=== PATIENT | female | born 1985 | race Caucasian/White ===

== ENCOUNTER 2019-09-22 19:47 | Emergency (ER) | payer BC, OTHER ==
[2019-09-22 20:09] VITALS: BP 128/68
--- NOTE | 2019-09-22 20:19 | UC ---
Throat Pain/Nasal Jose HPI - HPI Summary HPI Summary: 34 y/o female presents to the urgent c/o dry cough, neck pain, sore throat and low grade fever for the past 4 days. Pt repeorts she had similar symptoms in July when she travelled to [facility] and was Dx w/ strep clinically and Rx antibiotics and symptoms improved. Now it has returned. p[ain sw/ swalloing is 4/10 w/ some white spots on her tonsils. Low grade fever at home the first day of 99F. Pt has not taken any medication to alleviate symptoms. She denies any SOB, chest pain, MCNEIL, body aches dizziness, abdominal pain, N/V/D. She travelled to [place] from September 15-, Denies sick contacts. - History of Current Complaint Chief Complaint: UCGeneralIllness Stated Complaint: COUGH, SORE THROAT Time Seen by Provider: 09/22/19 20:17 Hx Obtained From: Patient Hx Last Menstrual Period: 09/16/19 Onset/Duration: Gradual Onset, Lasting Days Pain Intensity: 2 - Allergies/Home Medications Allergies/Adverse Reactions: Allergies Allergy/AdvReac Type Severity Reaction Status Date / Time cefaclor [From [facility]] Allergy Hives Verified 09/22/19 20:10 doxycycline Allergy Vomiting Verified 09/22/19 20:10 Home Medications: Home Medications Desog-E.estradiol/E.estradiol [Mircette 0.15-0.02/0.01 mg (27/11)] 1 tab PO DAILY 04/30/14 [History Confirmed 09/22/19] PMH/Surg Hx/FS Hx/Imm Hx - Surgical History Surgical History: None - Social History Alcohol Use: None Substance Use Type: None Smoking Status (MU): Current Some Day Smoker Physical Exam - Summary Physical Exam Summary: VITAL SIGNS: Reviewed. GENERAL: Patient is a well developed and nourished who is sitting comfortably in the examining table. Patient is not in any acute respiratory distress. HEAD AND FACE: No signs of trauma. No ecchymosis, hematomas or skull depressions. No sinus tenderness. EYES: PERRLA, EOMI x 2, No injected conjunctiva, no nystagmus. No photophobia. EARS: Hearing grossly intact. Ear canals and tympanic membranes are within normal limits. MOUTH: Positive pharynx with erythema, exudates, palatal petechiae. B/L tonsillar enlargement with exudate. Uvula in midline. NECK: Supple, trachea is midline, Positive anterior cervical lymphadenopathy, no JVD, no carotid bruit, no c-spine tenderness, neck with full ROM. No meningeal signs, no Kernig's or brudzinskis signs. CHEST: Symmetric, no tenderness at palpation LUNGS: Clear to auscultation bilaterally. No wheezing or crackles. CVS: Regular rate and rhythm, S1 and S2 present, no murmurs or gallops appreciated. ABDOMEN: Soft, non-tender. No signs of distention. No rebound no guarding, and no masses palpated. Bowel sounds are normal. EXTREMITIES: FROM in all major joints, no edema, no cyanosis or clubbing. NEURO: Alert and oriented x 3. No acute neurological deficits. Speech is normal and follows commands. SKIN: Dry and warm Triage Information Reviewed: Yes Vital Signs: Initial Vital Signs Temp 98.7 F 09/22/19 20:02 Pulse 75 09/22/19 20:02 Resp 128 09/22/19 20:02 BP 128/68 09/22/19 20:02 Pulse Ox 98 09/22/19 20:02 Throat Pain/Nasal Course/Dx - Differential Dx/Diagnosis Differential Diagnosis/HQI/PQRI: Influenza, Laryngitis, Otitis Media, Peritonsillar Abscess, Pharyngitis, URI Provider Diagnosis: Acute viral pharyngitis Discharge ED - Sign-Out/Discharge Documenting (check all that apply): Patient Departure - D/c home All imaging exams completed and their final reports reviewed: No Studies - Discharge Plan Condition: Stable Disposition: HOME Patient Education Materials: Pharyngitis (ED) Forms: *Work Release Referrals: Carter Miranda MD [Primary Care Provider] - 3 Days Additional Instructions: 1- Rapid strep: negative, Rapid influenza A&B; negative 2-Please take ibuprofen PO q6-8hrs prn as instructed after meals to alleviate pain and swelling. Increase fluid intake, eat well, rest and avoid strenuous exercise. 3- Throat culture, CBC, and Monospot ordered and sent to lab. You will be notified of any abnormality for further management. 4-If symptoms do not improve or worsen please return to the urgent care or f/u with your PCP in 3 days for further evaluation and treatment. - Billing Disposition and Condition Condition: STABLE Disposition: Home
[2019-09-22 20:38] LABS: Influenza A Molecular Negative (Negative); Influenza B Molecular Negative (Negative)
[2019-09-22] MEDS ORDERED: Ibuprofen TAB* 400 MG PO ONE (20:49)
[2019-09-23 11:39] LABS: ABS Eosinophils 0.1 10^3/ul (0-0.6); ABS Lymphocytes 2.2 10^3/ul (1.0-4.8); ABS Monocytes 0.5 10^3/ul (0-0.8); ABS Neutrophils 4.3 10^3/ul (1.5-7.7); Hematocrit 40 % (35-47); Hemoglobin 13.8 g/dL (12.0-16.0); Lymphocyte % 30.3 %; Mean Corpuscular HGB Conc 34 g/dL (31-36); Mean Corpuscular Hemoglobin 31 pg (27-31); Mean Corpuscular Volume 89 fL (80-97); Mean Platelet Volume 8.4 fL (7.4-10.4); Nucleated Red Blood Cells % 0.1; Platelet Count 266 10^3/uL (150-450); Red Blood Count 4.53 10^6 /uL (3.70-4.87); Red Cell Distribution Width 13 % (10-15); White Blood Count 7.1 10^3/uL (3.5-10.8)
[2019-09-24 14:41] LABS: EBV Capsid Ag IgG Ab Positive (Negative); EBV Capsid Ag IgM Ab Positive (Negative); Epstein-Barr Nuclear Antigen Positive (Negative)
--- NOTE | 2019-09-24 16:44 | UC ---
Course/Dx - Diagnoses Provider Diagnoses: Acute viral pharyngitis Discharge ED - Sign-Out/Discharge All imaging exams completed and their final reports reviewed: No Studies - Discharge Plan Condition: Stable Disposition: HOME Patient Education Materials: Pharyngitis (ED) Forms: *Work Release Referrals: Carter Miranda MD [Primary Care Provider] - 3 Days Additional Instructions: 1- Rapid strep: negative, Rapid influenza A&B; negative 2-Please take ibuprofen PO q6-8hrs prn as instructed after meals to alleviate pain and swelling. Increase fluid intake, eat well, rest and avoid strenuous exercise. 3- Throat culture, CBC, and Monospot ordered and sent to lab. You will be notified of any abnormality for further management. 4-If symptoms do not improve or worsen please return to the urgent care or f/u with your PCP in 3 days for further evaluation and treatment. - Billing Disposition and Condition Condition: STABLE Disposition: Home
--- NOTE | 2019-09-24 17:07 | UC ---
- Progress Note Progress Note: Throat culture with Group C strep - rx for azithromycin. EBV positive - monospot was negative, but EBV likely represents mono-like infectious process. --- Avoid contact sports and rest Discussed above with Carrie García Course/Dx - Diagnoses Provider Diagnoses: Acute viral pharyngitis Discharge ED - Sign-Out/Discharge Documenting (check all that apply): Post-Discharge Follow Up All imaging exams completed and their final reports reviewed: No Studies - Discharge Plan Condition: Stable Disposition: HOME Prescriptions: Azithromycin TAB* [Zithromax TAB (Z-ELSA) 250 mg #6 tabs] 2 tab PO .TODAY, THEN 1 DAILY #1 elsa Patient Education Materials: Pharyngitis (ED) Forms: *Work Release Referrals: Carter Miranda MD [Primary Care Provider] - 3 Days Additional Instructions: 1- Rapid strep: negative, Rapid influenza A&B; negative 2-Please take ibuprofen PO q6-8hrs prn as instructed after meals to alleviate pain and swelling. Increase fluid intake, eat well, rest and avoid strenuous exercise. 3- Throat culture, CBC, and Monospot ordered and sent to lab. You will be notified of any abnormality for further management. 4-If symptoms do not improve or worsen please return to the urgent care or f/u with your PCP in 3 days for further evaluation and treatment. - Billing Disposition and Condition Condition: STABLE Disposition: Home
== END 2019-09-22 21:15 | disposition home or self-care (01) ==
LOC: UCEAST 19:47
DX: J02.8 Acute pharyngitis due to other specified organisms (principal); B97.89 Other viral agents as the cause of diseases classified elsewhere; Z88.1 Allergy status to other antibiotic agents; F17.210 Nicotine dependence, cigarettes, uncomplicated
CPT/HCPCS: 36415; 85025; 86308; 86664; 86665; 87070; 87651; 99211; G0463

== ENCOUNTER 2023-11-11 18:43 | Inpatient (IN) ==
[2023-11-11] MEDS ORDERED: Lidocaine 1% VIAL 10 MG/ML 30 ML VIAL INJ PRN (20:31)
[2023-11-11] MEDS: Lactated Ringers 1000 ml BAG 1,000 ML IV ONE (21:57)
[2023-11-11] MEDS: Penicillin G Potassium IV 5,000,000 UNITS in NS 0.9% 100 ml BAG 100 ML IVPB ONE (21:59)
[2023-11-11 22:08] LABS: ABS Basophils 0.1 10^3/uL (0.0-0.1); ABS Eosinophils 0.1 10^3/uL (0.0-0.5); ABS Lymphocytes 2.8 10^3/uL (1.0-4.8); ABS Monocytes 0.9 10^3/uL (0.0-0.9); ABS Neutrophils 11.9 10^3/uL (1.5-7.6); ABS Nucleated RBC 0.01 10^3/ul; Eosinophil % 0.7 %; Hematocrit 40.8 % (35-45); Hemoglobin 13.8 g/dL (11.5-14.3); Lymphocyte % 17.9 %; Mean Corpuscular Hemoglobin 32.8 pg (27-33); Mean Corpuscular Hgb Conc 33.7 g/dL (31-36); Mean Corpuscular Volume 97.3 fL (80-97); Mean Platelet Volume 9.3 fL (7.5-11.2); Nucleated Red Blood Cells % 0.1 %/100WBC (0.0-0.8); Platelet Count 225 10^3/uL (150-450); Red Blood Count 4.19 10^6/uL (3.63-4.92); Red Cell Distribution Width 13.3 % (12-17); White Blood Count 15.8 10^3/uL (3.8-11.8)
[2023-11-11 22:50] LABS: Urine Benzodiazepine Screen None Detected (None Detect); Urine Cannabinoids Screen None Detected (None Detect); Urine Opiates Screen None Detected (None Detect)
[2023-11-11] MEDS ORDERED: Phenylephrine 40 mcg/mL 10mL (400mcg) SYRINGE IV PUSH PRN ×2 (23:20)
[2023-11-12] MEDS ORDERED: Glycerin ADULT 2.4 gm SUPP PR PRN (00:39)
[2023-11-12] MEDS ORDERED: Lactated Ringers 1000 ml BAG 1,000 ML IV SCH (01:00)
[2023-11-12] MEDS: Dibucaine 1% OINT 28.35 GM TUBE PR PRN (09:37)
[2023-11-12] MEDS: Witch Hazel PAD JAR TOPICAL PRN (09:37)
[2023-11-12] MEDS: Lidocaine/Epinephrin 1.5%/200 5 ML AMP INJ ONE (17:19)
[2023-11-12] MEDS: Phenylephrine 40 mcg/mL 10mL (400mcg) SYRINGE ONE (17:19)
[2023-11-12] MEDS: Lactated Ringers 1000 ml BAG 1,000 ML IV SCH (17:20)
[2023-11-12] MEDS: OBEPIDURAL (200 ML) 200 ML EPIDURAL ONE (17:20)
[2023-11-12] MEDS: Lactated Ringers 1000 ml BAG 1,000 ML IV ONE (17:20)
[2023-11-12] MEDS: OBEPIDURAL (200 ML) 200 ML EPIDURAL SCH (17:22)
[2023-11-12] MEDS: CMC:Lactase Enzyme (NF) 3,000 UNIT TAB PO SCH (18:23)
[2023-11-13 06:40] LABS: ABS Basophils 0.1 10^3/uL (0.0-0.1); ABS Eosinophils 0.3 10^3/uL (0.0-0.5); ABS Lymphocytes 3.2 10^3/uL (1.0-4.8); ABS Monocytes 0.7 10^3/uL (0.0-0.9); ABS Neutrophils 8.6 10^3/uL (1.5-7.6); Eosinophil % 2.7 %; Hematocrit 35.4 % (35-45); Lymphocyte % 24.9 %; Mean Corpuscular Hemoglobin 33.4 pg (27-33); Mean Corpuscular Hgb Conc 33.9 g/dL (31-36); Mean Corpuscular Volume 98.3 fL (80-97); Mean Platelet Volume 8.5 fL (7.5-11.2); Platelet Count 197 10^3/uL (150-450); Red Cell Distribution Width 13.7 % (12-17)
[2023-11-14 08:02] VITALS: BP 115/72
[2023-11-14] MEDS: Penicillin G Potassium IV 3,000,000 UNITS in NS 0.9% 100 ml BAG 100 ML IVPB SCH (09:26)
[2023-11-14] MEDS: Buffered Lidocaine 1% SYRIN 1 ml INTRADERM ONE (09:26)
[2023-11-14] MEDS: Lactated Ringers 1000 ml BAG 1,000 ML IV SCH (09:27)
== END 2023-11-14 14:28 | disposition home or self-care (01) | DRG 560 ==
LOC: MCHOBOUT 18:43 → MCHOB 20:11
PROVIDERS: ADMIT Midwife; ATTEND Midwife